=== PATIENT | male | born 1990 | race Caucasian/White ===

== ENCOUNTER 2020-03-19 16:49 | Emergency (ER) | payer SELFPAY ==
[~2020-03-19] VITALS: Ht 188 cm; Wt 90.0 kg
[2020-03-19 17:09] VITALS: BP 147/74
[2020-03-19] MEDS ORDERED: NAPROXEN 500 MG TABLET PO STA (17:27)
--- NOTE | 2020-03-19 17:34 | RAD ---
ANKLE LEFT 3V 03/19/2020 5:09 PM INDICATION: Pain COMPARISON: None available. TECHNIQUE: 3 views of the left ankle are provided. FINDINGS/ IMPRESSION: There is no acute fracture or dislocation. Joint spaces are maintained. Bone mineralization is within normal limits. Regional soft tissues are within normal limits. There is no soft tissue gas or osseous erosion. No radiopaque foreign body. Electronically signed by: Madeline Daniel MD (03/19/2020 5:31 PM) KAVYA
[2020-03-19] MEDS ORDERED: HYDROcodone/APAP 5/325MG 1 TAB TABLET PO ONE (18:00)
--- NOTE | 2020-03-19 18:26 | PHYS DOC ---
Past Medical History Past Medical History: No Pertinent History Past Surgical History: Appendectomy Smoking Status: Current Every Day Smoker Alcohol Use: Occasionally General Adult EDM: Chief Complaint: ANKLE PROBLEM HPI: HPI: Patient is a 29 year old male who presents to the ED today complaining of mild intermittent left lateral ankle pain that began around noon when he fell into a hole. Patient denies hitting his head on the ground. He states his ankle twisted. Reports the ankle pain is throbbing and intermittent worse on ambulation. Denies anything specifically relieving his pain. Review of Systems: Review of Systems: Constitutional: Denies fever or chills. [] Musculoskeletal: Reports left ankle pain Integument: Denies rash. [] Neurologic: Denies headache, focal weakness or sensory changes. [] Psychiatric: Denies depression or anxiety. [] Heart Score: Risk Factors: Risk Factors: DM, Current or recent (<one month) smoker, HTN, HLP, family history of CAD, obesity. Risk Scores: Score 0 - 3: 2.5% MACE over next 6 weeks - Discharge Home Score 4 - 6: 20.3% MACE over next 6 weeks - Admit for Clinical Observation Score 7 - 10: 72.7% MACE over next 6 weeks - Early Invasive Strategies Current Medications: Current Medications Medications (Trade) Dose Ordered Sig/Lay Start Time Stop Time Status Last Admin Dose Admin Acetaminophen/ Hydrocodone Bitart (Lortab 5/325) 1 tab 1X ONCE 03/19/20 18:00 03/19/20 18:01 DC 03/19/20 18:14 1 TAB Naproxen (Naprosyn) 500 mg 1X STAT 03/19/20 17:27 03/19/20 17:42 DC 03/19/20 18:14 500 MG Allergies: Allergies: Allergies Coded Allergies Type Severity Reaction Last Updated Verified No Known Drug Allergies 03/19/20 No Physical Exam: PE: Constitutional: Well developed, well nourished, no acute distress, non-toxic appearance. [] Extremities: Left ankle with no obvious deformity. Soft tissue swelling noted. Tenderness on palpation of the left lateral ankle. Full active as well as passive range of motion to the left ankle. +2 left pedal pulse. Cap refill less than 2 seconds to left toes. Neurologic: Alert and oriented X 3, normal motor function, normal sensory function, no focal deficits noted. [] Psychologic: Affect normal, judgement normal, mood normal. [] Current Patient Data: Vital Signs: Vital Signs Date Time Temp Pulse Resp B/P (MAP) Pulse Ox O2 Delivery O2 Flow Rate FiO2 03/19/20 18:14 Room Air 03/19/20 17:09 100.7 122 20 147/74 (98) 98 100.7 EKG: EKG: [] Radiology/Procedures: Radiology/Procedures: []PROCEDURE: ANKLE LEFT 3V ANKLE LEFT 3V 03/19/2020 5:09 PM INDICATION: Pain COMPARISON: None available. TECHNIQUE: 3 views of the left ankle are provided. FINDINGS/ IMPRESSION: There is no acute fracture or dislocation. Joint spaces are maintained. Bone mineralization is within normal limits. Regional soft tissues are within normal limits. There is no soft tissue gas or osseous erosion. No radiopaque foreign body. Electronically signed by: Rolly Daniel MD (03/19/2020 5:31 PM) [facility] DICTATED and SIGNED BY: ROLLY DANIEL MD DATE: 03/19/20 173 Course & Med Decision Making: Course & Med Decision Making Pertinent Labs and Imaging studies reviewed. (See chart for details) This is a 29-year-old male patient presenting to the ED today with left ankle pain that began after he fell into a hole. Left ankle x-rays interpreted by radiologist are negative for any acute findings. Ok bandage applied to the left ankle as well as Aircast, neurovascular exam done by me is negative, ice elevation encouraged. Follow-up with orthopedic doctor in 1 week Jerome Disclaimer: Jerome Disclaimer: This electronic medical record was generated, in whole or in part, using a voice recognition dictation system. Departure Departure Impression: Primary Impression: Left ankle sprain Qualified Codes: S93.402A - Sprain of unspecified ligament of left ankle, initial encounter Additional Impression: Fall into hole Qualified Codes: W17.2XXA - Fall into hole, initial encounter Disposition: 01 HOME, SELF-CARE Condition: STABLE Referrals: NON,STAFF (PCP) follow up in 2 week ZORA SEALS MD Patient Instructions: Ankle Sprain, Acute, with Phase I Rehab-SportsMed Additional Instructions: You were seen for left ankle pain. Your left ankle x-rays are negative for any acute findings. You likely have left ankle sprain. Try to ice and elevate the extremity. Take [id number] pain medicine as needed for pain. Follow-up with your own doctor or the provided orthopedic doctor in 2 weeks if pain persist Justicifation of Admission Dx: Justifications for Admission: Justification of Admission Dx: N/A JUSTIN PETE APRN Mar 19, 2020 18:26
== END 2020-03-19 18:40 | disposition home or self-care (01) ==
LOC: ER 16:49
DX: S93.492A Sprain of other ligament of left ankle, initial encounter (principal); R60.0 Localized edema; F17.200 Nicotine dependence, unspecified, uncomplicated; Z90.89 Acquired absence of other organs; X58.XXXA Exposure to other specified factors, initial encounter; W17.2XXA Fall into hole, initial encounter; Y93.89 Activity, other specified; Y92.89 Other specified places as the place of occurrence of the external cause; Y99.8 Other external cause status
CPT/HCPCS: 73610; 99284; L4350

== ENCOUNTER 2021-06-03 15:43 | Emergency (ER) | payer OTHER ==
[~2021-06-03] VITALS: Ht 188 cm; Wt 86.0 kg
[2021-06-03 16:04] VITALS: BP 128/76
[2021-06-03] MEDS ORDERED: AMOX500C PO (16:20)
--- NOTE | 2021-06-03 16:20 | PHYS DOC ---
Past Medical History Past Medical History: No Pertinent History Past Surgical History: Appendectomy Smoking Status: Current Every Day Smoker Alcohol Use: None General Adult EDM: Chief Complaint: DENTAL PROBLEM HPI: HPI: Patient is a 31 year old male who presents with with many dental caries and broken teeth with 2 days of left facial swelling and pain. He states that Tylenol is helping his pain. He states he just got insurance who does not have a primary care or dentist. He states he is needing an antibiotic and he will follow up with a dentist as soon as possible. He denies fever, nausea, vomiting, diarrhea, dizziness, chest pain, shortness of air. Rates his pain a 5 out of 10 at this time. Review of Systems: Review of Systems: Constitutional: Denies fever or chills. [] Eyes: Denies change in visual acuity. [] HENT: Denies nasal congestion or sore throat. + Dental pain [] Respiratory: Denies cough or shortness of breath. [] Cardiovascular: Denies chest pain or + facial edema. [] GI: Denies abdominal pain, nausea, vomiting, bloody stools or diarrhea. [] : Denies dysuria. [] Musculoskeletal: Denies back pain or joint pain. [] Integument: Denies rash. [] Neurologic: Denies headache, focal weakness or sensory changes. [] Endocrine: Denies polyuria or polydipsia. [] Lymphatic: Denies swollen glands. [] Psychiatric: Denies depression or anxiety. [] Heart Score: C/O Chest Pain: No Allergies: Allergies: Allergies Coded Allergies Type Severity Reaction Last Updated Verified No Known Drug Allergies 03/19/20 No Physical Exam: PE: Constitutional: Well developed, well nourished, no acute distress, non-toxic appearance. [] HENT: Normocephalic, atraumatic, bilateral external ears normal, oropharynx moist, no oral exudates, nose normal. Many loose and missing and broken teeth throughout his whole mouth. Left-sided facial swelling without redness or tenderness. [] Eyes: PERRLA, EOMI, conjunctiva normal, no discharge. [] Neck: Normal range of motion, no tenderness, supple, no stridor. [] Cardiovascular:Heart rate regular rhythm, no murmur [] Lungs & Thorax: Bilateral breath sounds clear to auscultation [] Abdomen: Bowel sounds normal, soft, no tenderness, no masses, no pulsatile masses. [] Skin: Warm, dry, no erythema, no rash. [] Back: No tenderness, no CVA tenderness. [] Extremities: No tenderness, no cyanosis, no clubbing, ROM intact, no edema. [] Neurologic: Alert and oriented X 3, normal motor function, normal sensory function, no focal deficits noted. [] Psychologic: Affect normal, judgement normal, mood normal. [] Current Patient Data: Vital Signs: Vital Signs Date Time Temp Pulse Resp B/P (MAP) Pulse Ox O2 Delivery O2 Flow Rate FiO2 06/03/21 16:04 98.7 111 16 128/76 (93) 97 Room Air 98.7 EKG: EKG: [] Radiology/Procedures: Radiology/Procedures: [] Course & Med Decision Making: Course & Med Decision Making Pertinent Labs and Imaging studies reviewed. (See chart for details) See HPI. Alert and oriented x4. Ambulatory steady gait. Speaks in full clear sentences. Many dental caries and broken teeth. He has a left upper canine tooth that is broken and is painful. He is left-sided 2+ facial swelling. No redness to suggest facial cellulitis. He is afebrile. Speaks in full clear sentences. Can open his mouth wide. No pain under the tongue or swelling under the tongue. [] Dragon Disclaimer: Jerome Disclaimer: This electronic medical record was generated, in whole or in part, using a voice recognition dictation system. Departure Departure Impression: Primary Impression: Dental abscess Disposition: HOME / SELF CARE / HOMELESS Condition: STABLE Referrals: NO PCP (PCP) Patient Instructions: Dental Abscess Additional Instructions: Take medication as prescribed and with food. Continue taking Tylenol. Follow- up with a dentist as soon as possible. If swelling worsens or you begin running a fever you need to return to the emergency room. Scripts Amoxicillin (AMOXICILLIN) 500 Mg Capsule 1 CAP PO TID, #30 CAP Prov: SHOSHANA FERRER APRN 06/03/21 SHOSHANA FERRER APRN Jun 03, 2021 16:20
== END 2021-06-03 16:37 | disposition home or self-care (01) ==
LOC: ER 15:43
DX: K04.7 Periapical abscess without sinus (principal); F17.200 Nicotine dependence, unspecified, uncomplicated
CPT/HCPCS: 99283